=== PATIENT | male | born 1965 | race Caucasian/White ===

== ENCOUNTER → 2017-12-18 | Outpatient (CLI) | payer OTHER | END | disposition home or self-care (01) | LOC: PCVCIMAG 15:35 | DX: I34.0 Nonrheumatic mitral (valve) insufficiency (principal); I48.91 Unspecified atrial fibrillation | CPT/HCPCS: 93306 ==

== ENCOUNTER → 2018-05-25 | Outpatient (CLI) | payer OTHER ==
[~2018-05-25] MED LIST: IV NORMAL SALINE 500ML BAG 0 ML ONE; IV NORMAL SALINE 500ML BAG 500 ML ONE; MIDAZOLAM HCL/PF 2 MG/2 ML VIAL. ONE; fentaNYL PF VIAL 100 MCG/2 ML VIAL ONE
--- NOTE | 2018-05-25 13:41 | PCVCINTER ---
APPROVED REPORT Patient Location: Out-Patient Room #: 1 Stress Nurse: Procedure: Electrical cardioversion Indications: 53-year-old male patient with symptomatic atrial fibrillation nonresponsive to antiarrhythmic medications. Brief description of procedure: After informed consent was obtained the patient was brought to cardiac catheterization laboratory prep and hold. Pads were placed in the AP position without issues. The patient was then sedated with 6 mg of Versed and 2 mg aliquots and 100 mg of fentanyl in 25 mg aliquots to achieve sedation. A synchronize biphasic 200 J shock was administered which converted the patient to sinus bradycardia. The patient remained in sinus mechanism for 5 minutes and pads were subsequently removed. Continuous oximetric and echocardiographic monitoring was performed throughout the him tire procedure. Patient was subsequently reversed without complications. Patient tolerated procedure well. Sedation: Versed 6 mg Fentanyl 100 mg Complications: None Conclusion 1. Successful electrical cardioversion
== END | disposition home or self-care (01) ==
LOC: PCVCINTER 09:00
PROVIDERS: ATTEND Internal Medicine
DX: I48.1 Persistent atrial fibrillation (principal); G47.33 Obstructive sleep apnea (adult) (pediatric); E66.09 Other obesity due to excess calories; Z68.35 Body mass index [BMI] 35.0-35.9, adult; Z90.49 Acquired absence of other specified parts of digestive tract; Z98.890 Other specified postprocedural states; Z83.3 Family history of diabetes mellitus; Z82.49 Family history of ischemic heart disease and other diseases of the circulatory system; Z72.89 Other problems related to lifestyle; Z79.899 Other long term (current) drug therapy
CPT/HCPCS: 92960; J2250; J3010; J7040